=== PATIENT | female | born 1985 | race Hispanic/Latino ===

== ENCOUNTER 2017-09-28 10:25 | Emergency (ER) | payer OTHER, SELFPAY ==
--- NOTE | 2017-09-28 11:46 | RAD REPORT ---
EXAM DESCRIPTION: RAD - Knee Right 3 View - 09/28/2017 11:32 am CLINICAL HISTORY: Right knee pain and popping. COMPARISON: None. FINDINGS: No fracture, dislocation or periosteal reaction.No joint effusion seen. No joint space sven rowing. No soft tissue abnormality. Clinical concerns for internal derangement or occult bony injury could be further assessed with MR im aging. IMPRESSION: Negative right knee.
[2017-09-28] MEDS ORDERED: IBUPROFEN 400 MG TAB ONE (12:31)
--- NOTE | 2017-09-28 12:35 | EDPHYS ---
Physician Documentation [facility] Name: Polly Hagan Age: 32 yrs Sex: Female : 1985 Arrival Date: 09/28/2017 Time: 10:29 Bed 11 Private MD: None, None ED Physician Emiliano Nieves HPI: 09/28 12:28 This 32 yrs old Female presents to ER via Ambulatory with complaints of Knee cp Pain. 12:28 The patient presents with an injury. cp 12:28 The complaints affect the bilateral knees. Context: felt "pop" in both knees while cp exercising today. Now left knee feels like it will give out when bearing weight. 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 - Social history:: Smoking status: Patient/guardian denies using tobacco, Patient/guardian denies using alcohol. ROS: 12:28 Eyes: Negative for injury, pain, redness, and discharge. cp 12:28 Constitutional: Negative for body aches, chills, fever, poor PO intake. 12:28 Cardiovascular: Negative for chest pain, edema, palpitations. 12:28 Respiratory: Negative for cough, shortness of breath, wheezing. 12:28 Abdomen/GI: Negative for abdominal pain, nausea, vomiting, and diarrhea. 12:28 MS/extremity: Positive for pain, tenderness, of the left knee, Negative for decreased range of motion, deformity, paresthesias. 12:28 Skin: Negative for cellulitis, rash. 12:28 Neuro: Negative for altered mental status, headache, weakness. 12:28 All other systems are negative. Exam: 12:30 Constitutional: The patient appears in no acute distress, alert, awake, non-toxic, well cp developed, well nourished, overweight 12:30 Head/Face: Normocephalic, atraumatic. cp 12:30 Eyes: Periorbital structures: appear normal, Conjunctiva: normal, no exudate, no injection, Lids and lashes: appear normal, bilaterally. 12:30 ENT: External ear(s): are unremarkable, Nose: is normal, Mouth: is normal, Posterior pharynx: is normal, airway is patent. 12:30 Chest/axilla: Inspection: normal. 12:30 Cardiovascular: Rate: normal. 12:30 Respiratory: the patient does not display signs of respiratory distress, Respirations: normal, no use of accessory muscles, no retractions, no splinting, no tachypnea. 12:30 Abdomen/GI: Exam negative for discomfort, distension, guarding, Inspection: abdomen appears normal. 12:30 Back: pain, is absent, ROM is normal. 12:30 Musculoskeletal/extremity: Joints: All joints are normal except the lateral aspect left knee and patella displays painful range of motion, tenderness, Weight bearing: can bear weight with assistance only. Vital Signs: 10:33 BP 123 / 79; Pulse 93; Resp 18; Temp 98.1(TE); Pulse Ox 97% on R/A; Weight 102.97 kg; hj Height 5 ft. 4 in. (162.56 cm); Pain 0/10; 10:33 Body Mass Index 38.97 (102.97 kg, 162.56 cm) Procedures: 12:35 Splinting: Splint applied to left knee using knee immobilizer, applied by nurse. cp Examined by me, post splint application: neurovascular intact, Patient tolerated well. MDM: 12:13 Patient medically screened. cp 12:33 Data reviewed: vital signs, nurses notes, radiologic studies, and as a result, I will cp discharge patient. 12:33 Differential diagnosis: dislocation, closed fracture, tendonitis, ligament injury. Test cp interpretation: by ED physician or midlevel provider: plain radiologic studies. Counseling: I had a detailed discussion with the patient and/or guardian regarding: the historical points, exam findings, and any diagnostic results supporting the discharge/admit diagnosis, radiology results, the need for outpatient follow up, a orthopedic surgeon, to return to the emergency department if symptoms worsen or persist or if there are any questions or concerns that arise at home. 09/28 10:36 Order name: Knee Right 3 View XRAY; Complete Time: 11:49 hj 09/28 10:36 Order name: Knee Left 3 View XRAY; Complete Time: 11:49 hj 09/28 12:23 Order name: Knee Immobilizer: left; Complete Time: 12:34 cp 09/28 12:23 Order name: Crutches; Complete Time: 12:34 cp Administered Medications: 12:25 Drug: Ibuprofen 800 mg Route: PO; 12:34 Follow up: Response: No adverse reaction; Pain is decreased hj Disposition: 09/29 07:09 Co-signature as Attending Physician, Emiliano Nieves MD I agree with the assessment and sc plan of care. Disposition: 09/28/17 12:33 Discharged to Home. Impression: Pain in unspecified knee - Bilateral, Left worse than Right. - Condition is Stable. - Discharge Instructions: Knee Immobilizer, Knee Pain. - Prescriptions for Ibuprofen 800 mg Oral Tablet - take 1 tablet by ORAL route every 8 hours As needed take with food; 30 tablet. - Medication Reconciliation Form, Thank You Letter, Antibiotic Education, Prescription Opioid Use form. - Follow up: Grover Richardson MD; When: 2 - 3 days; Reason: Recheck today's complaints. - Problem is new. - Symptoms are unchanged. Signatures: Dispatcher [employer] EDME Jovanny Matta RN RN Juan Luis Posada PA PA cp Appiah, William, MD MD sc Corrections: (The following items were deleted from the chart) 09/28 13:09 12:33 09/28/2017 12:33 Discharged to Home. Impression: Pain in unspecified knee - hj Bilateral, Left worse than Right. Condition is Stable. Forms are Medication Reconciliation Form, Thank You Letter, Antibiotic Education, Prescription Opioid Use. Follow up: Grover Richardson; When: 2 - 3 days; Reason: Recheck today's complaints. Problem is new. Symptoms are unchanged. cp
--- NOTE | 2017-09-28 12:35 | ER ---
Nurse's Notes [facility] Name: Polly Hagan Age: 32 yrs Sex: Female : 1985 Arrival Date: 09/28/2017 Time: 10:29 Bed 11 Private MD: None, None Diagnosis: Pain in unspecified knee-Bilateral, Left worse than Right Presentation: 09/28 10:30 Presenting complaint: Patient states: while i was exercising today, i heard both knees hj popped and felt like my knees both went in, and when i was trying to get into my truck my knees arnulfo week; denies fall;. Transition of care: patient was not received from another setting of care. Onset of symptoms was September 28, 2017. Initial Sepsis Screen: Does the patient meet any 2 criteria? No. Patient's initial sepsis screen is negative. Does the patient have a suspected source of infection? No. Patient's initial sepsis screen is negative. Care prior to arrival: None. 10:30 Method Of Arrival: Ambulatory 10:30 Acuity: CELINA 4 hj Triage Assessment: 10:33 General: Appears in no apparent distress. uncomfortable, Behavior is calm, cooperative, hj appropriate for age. Pain: Complains of pain in right knee and left knee. 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 - Social history:: Smoking status: Patient/guardian denies using tobacco, Patient/guardian denies using alcohol. Screenin:44 Abuse screen: Denies threats or abuse. Denies injuries from another. Nutritional hj screening: No deficits noted. Tuberculosis screening: No symptoms or risk factors identified. Fall Risk None identified. Assessment: 11:45 General: Appears in no apparent distress. uncomfortable, Behavior is calm, cooperative, hj appropriate for age. Pain: Denies pain. Neuro: Level of Consciousness is awake, alert, obeys commands, Oriented to person, place, time, situation, Appropriate for age. Cardiovascular: Capillary refill < 3 seconds Patient's skin is warm and dry. Respiratory: Airway is patent Respiratory effort is even, unlabored, Respiratory pattern is regular, symmetrical. GI: No signs and/or symptoms were reported involving the gastrointestinal system. : No signs and/or symptoms were reported regarding the genitourinary system. EENT: No signs and/or symptoms were reported regarding the EENT system. Derm: No signs and/or symptoms reported regarding the dermatologic system. Musculoskeletal: Reports tingling and numbness on both knees;. Vital Signs: 10:33 BP 123 / 79; Pulse 93; Resp 18; Temp 98.1(TE); Pulse Ox 97% on R/A; Weight 102.97 kg; hj Height 5 ft. 4 in. (162.56 cm); Pain 0/10; 10:33 Body Mass Index 38.97 (102.97 kg, 162.56 cm) hj ED Course: 10:29 Patient arrived in ED. mr 10:29 None, None is Private Physician. mr 10:32 Triage completed. hj 10:33 Arm band placed on left wrist. hj 11:32 X-ray completed. Patient tolerated procedure well. Patient moved back from radiology. ml 11:32 Knee Right 3 View XRAY In Process Unspecified. EDMS 11:32 Knee Left 3 View XRAY In Process Unspecified. EDMS 11:44 Jovanny Matta, PRECIOUS is Primary Nurse. hj 11:44 Patient has correct armband on for positive identification. Bed in low position. Call hj light in reach. Side rails up X 1. 12:13 Juan Luis Posada PA is PHCP. cp 12:13 Emiliano Nieves MD is Attending Physician. cp 12:32 Grover Richardson MD is Referral Physician. cp 12:46 No provider procedures requiring assistance completed. Patient did not have IV access hj during this emergency room visit. Administered Medications: 12:25 Drug: Ibuprofen 800 mg Route: PO; hj 12:34 Follow up: Response: No adverse reaction; Pain is decreased hj Outcome: 12:33 Discharge ordered by . cp 12:46 Discharged to home ambulatory, with crutches, with family. hj 12:46 Condition: stable 12:46 Discharge instructions given to patient, family, Instructed on discharge instructions, follow up and referral plans. medication usage, crutch walking, Demonstrated understanding of instructions, follow-up care, medications, crutch walking, Prescriptions given X 1. 13:09 Patient left the ED. hj Signatures: Dispatcher [employer] EDMS Jamee Rodriguez mr Shay, EstrellaJovanny Espinoza RN RN Juan Luis Bermeo PA PA cp Corrections: (The following items were deleted from the chart) 10:36 10:33 Pulse 93bpm; Resp 18bpm; Pulse Ox 97% RA; Temp 98.1F Temporal; 102.97 kg; Height hj 5 ft. 4 in.; BMI: 38.9; Pain 0/10; hj
== END 2017-09-28 13:09 | disposition home or self-care (01) ==
LOC: ER 10:25
PROC: 2W3RXYZ Immobilization of Left Lower Leg using Other Device (ICD-10-PCS; principal; 2017-09-28)
DX: M25.562 Pain in left knee (principal); M25.561 Pain in right knee
CPT/HCPCS: 99284